=== PATIENT | male | born 1995 | race Caucasian/White ===

== ENCOUNTER 2023-09-12 19:09 | Emergency (ER) | payer BC, SELFPAY ==
--- NOTE | 2023-09-12 19:10 | ED.SKABFB ---
HPI - Skin/Abscess/Foreign Bdy General Chief complaint: Skin/Abscess/Foreign Body Stated complaint: Rash Time Seen by Provider: 09/12/23 19:17 Source: patient, RN notes reviewed and old records reviewed Mode of arrival: ambulatory Limitations: no limitations History of Present Illness HPI narrative: 26-year-old male presents to the [facility] with continued rash. Patient has been treated since August 27 with steroids, antihistamines, topical creams with minimal relief. Patient states that rashes keep popping up intermittently. Has seen his primary and been to another urgent care. States he does have an appointment with Dermatology in September. Onset (ago): week(s) Related Data Home Medications Medication Instructions Recorded Confirmed cetirizine 10 mg tablet 10 mg PO DAILY 09/12/23 09/12/23 famotidine 20 mg tablet 20 mg PO DAILY 09/12/23 09/12/23 hydrocortisone 2.5 % topical 1 applic topical BID 09/12/23 09/12/23 ointment methylprednisolone 4 mg tablets in 4 mg PO DIRECTED 09/12/23 09/12/23 a dose pack olanzapine 10 mg tablet 10 mg PO HS 09/12/23 09/12/23 olanzapine 20 mg tablet 20 mg PO HS 09/12/23 09/12/23 triamcinolone acetonide 0.1 % 1 applic topical TID 09/12/23 09/12/23 topical cream Allergies Allergy/AdvReac Type Severity Reaction Status Date / Time Bumble Bee Allergy Intermediate HIVES Uncoded 09/12/23 19:11 Review of Systems Review of Systems: All systems reviewed & are unremarkable except as noted in HPI and below Constitutional: Constitutional: Reports no additional constitutional complaints Eyes: Eyes: Reports no additional eye complaints ENT: Reports system reviewed and no additional complaints, except as documented Cardiovascular: Cardiovascular: Reports no additional cardiovascular complaints, Denies chest pain and Denies dyspnea Respiratory: Respiratory: Reports no additional respiratory complaints, Denies chest congestion, Denies cough and Denies dyspnea Gastrointestinal: Gastrointestinal: Reports no additional gastrointestinal complaints, Denies abdominal pain, Denies nausea and Denies vomiting Musculoskeletal: Musculoskeletal: Reports no additional musculoskeletal complaints Integumentary/Breasts: Skin/Breast: Reports as per HPI Neurologic: Reports system reviewed and no additional complaints, except as documented Psychiatric: Psychiatric: Reports no additional psychiatric complaints Allergic/Immunologic: Allergic/Immunologic: Reports no additional allergic/immunologic complaints PMFSH Comments At the time of my signature, I reviewed and agree with the nursing past medical, surgical, social, and family history. There is no relevant family history pertinent to the patient complaint. Exam Const: General: cooperative, healthy appearing, comfortable, no acute distress, well developed, alert and well nourished Nutritional Appearance: well nourished Orientation/consciousness: patient oriented x3 Limitations: no limitations HENMT: Head: normal to inspection Ears: hearing grossly normal bilaterally and external ears normal Face/Nose/Sinus: Normal external nose present, Normal nares present, Normal nasal mucous membranes and turbinates present, normal facial exam and face symmetric Face and sinus: normal facial exam and face symmetric Throat: posterior oropharynx normal Eyes: General: appearance normal, both eyes and all related structures Alignment and Position: alignment normal Periorbital: periorbital findings normal Pupils: Equal, round and reactive pupils present EOM: EOMs intact bilaterally Neck: Neck: normal visual inspection, full ROM, no lymphadenopathy and no meningeal signs Chest: Chest palpation & inspection: normal inspection of the chest Resp: Effort & Inspection: normal respiratory effort and able to speak in complete sentences Auscultation: clear to auscultation bilaterally, no crackles, no rales, no rhonchi and no wheezes Cardio: Rate: regular rate Rhythm: r
[2023-09-12 19:17] VITALS: BP 149/92; PULSE 102; RESP 16; TEMP 37.4; O2SAT 99
== END 2023-09-12 19:35 | disposition home or self-care (01) ==
PROVIDERS: Emergency Provider Nurse Practitioner; PCP Physician Assistant
DX: L30.9 Dermatitis, unspecified (principal)
CPT/HCPCS: 99202; G0463